=== PATIENT | male | born 1935 | race Caucasian/White ===

== ENCOUNTER 2018-10-03 12:53 | Inpatient (IN) | payer MEDICARE ==
[~2018-10-03] VITALS: Ht 172.7 cm; Wt 92.4 kg
--- NOTE | 2018-10-03 13:01 | NUR ---
LEVAQUIN INFUSING ON ARRIVAL FROM [facility] WITH DX SEPTIC GALLSTONE. ABD IS RIGID AND DISTENDED. SHALLOW RAPID RESPS R/T DISTENSION. PT IS REQUIRING SUPPLEMENTAL O2 TO MAINTAIN SPO2 >90%. SPEECH CLEAR AND APPROP. AOX4. FEVER 100.1
[2018-10-03] MEDS ORDERED: ACETAMINOPHEN 325 MG SUPP PR ONE (13:03)
[2018-10-03] MEDS ORDERED: ACETAMINOPHEN 650 MG SUPP ONE (13:06)
--- NOTE | 2018-10-03 13:09 | NUR ---
ARUN COMPLETED. RECTAL TYLENOL GIVEN PER VERBAL ORDER BY DR WELCH. DR LOCK TO BS
[2018-10-03] MEDS ORDERED: PHEN-418 PO (13:17)
[2018-10-03] MEDS ORDERED: HYDR25TA6 PO (13:17)
[2018-10-03] MEDS ORDERED: LEVO112T2 PO (13:17)
[2018-10-03] MEDS ORDERED: LEVETIRACETAM PO (13:17)
[2018-10-03] MEDS ORDERED: LOSA100T7 PO (13:17)
[2018-10-03] MEDS ORDERED: OXYcodone IR 5MG TABLET PO PRN (13:30)
[2018-10-03] MEDS ORDERED: ONDANSETRON 2MG/ML, 2ML IVPush PRN (13:30)
[2018-10-03] MEDS ORDERED: ONDANSETRON ODT 4 MG PO PRN (13:30)
[2018-10-03] MEDS ORDERED: hydrALAzine 20 MG/ML, 1ML IVPush PRN (13:30)
[2018-10-03] MEDS ORDERED: morphine SULFATE 10 MG/ML, 1ML IVPush PRN (13:30)
--- NOTE | 2018-10-03 13:30 | NUR ---
ADMISSION ORDERS REVIEWED
[2018-10-03 13:53] LABS: MEAN CORPUSCULAR HEMOGLOBIN 30.6 pg (27.5-34.5); MEAN CORPUSCULAR HGB CONC 34.1 g/dL (33.2-36.2); MEAN CORPUSCULAR VOLUME 89.8 fL (81-97); MEAN PLATELET VOLUME 7.5 fL (7.4-10.4); PLATELET COUNT 178 x10^3/uL (130-400); RED BLOOD COUNT 5.05 x10^6/uL (4.38-5.82); RED CELL DISTRIBUTION WIDTH 14.9 % (9.4-14.8)
[2018-10-03 13:59] LABS: ALANINE AMINOTRANSFERASE 32 U/L (12-78); ALBUMIN 3.3 g/dL (3.4-5.0); ANION GAP 9 mmol/L (5-15); CALCIUM 8.2 mg/dL (8.5-10.1); CHLORIDE 106 mmol/L (98-107)
[2018-10-03 14:01] LABS: ALKALINE PHOSPHATASE 69 U/L (45-117); BILIRUBIN,TOTAL 1.4 mg/dL (0.2-1.0); TOTAL PROTEIN 7.4 g/dL (6.4-8.2)
[2018-10-03 14:18] LABS: MD YES
[2018-10-03 14:23] LABS: BAND#(MANUAL) 2.49 x10^3/uL; BANDS%(MANUAL) 14 % (0-7); LYMPH#(MANUAL) 0.36 x10^3/uL (1-3.4); LYMPHS% (MANUAL) 2 % (22-44); MONOS#(MANUAL) 0.53 x10^3/uL (0.3-2.7); MONOS% (MANUAL) 3 % (2-9); SEG#(MANUAL) 14.42 x10^3/uL (1.8-6.8); SEGS% (MANUAL) 81 % (42-75)
[2018-10-03 14:25] LABS: <PLATELET ESTIMATE> ADEQUATE; <PLT MORPHOLOGY> NORMAL PLT MORPH; ANISOCYTOSIS 1+
[2018-10-03] MEDS: D5%-0.45NACL+KCL 20MEQ 1,000 ML IV SCH (14:29)
--- NOTE | 2018-10-03 14:34 | NUR ---
REPORT CALLED TO SIMONE LEWIS
[2018-10-03 15:11] VITALS: BP 105/51
[2018-10-03] MEDS ORDERED: LEVOFLOXACIN/PMX 750MG/150ML 150 ML IV SCH (16:00)
[2018-10-03] MEDS: METRONIDAZOLE PMX 500MG/100ML 100 ML IV SCH ×2 (16:02→23:05)
[2018-10-03] MEDS: PANTOPRAZOLE 40 MG IV IVPush SCH ×2 (16:02→23:05)
[2018-10-03 20:45] VITALS: BP 127/70
[2018-10-04 03:00] VITALS: BP 132/80
[2018-10-04] MEDS ORDERED: ALBUTEROL SULFATE 2.5 MG/3 ML ONE ×2 (03:41→16:52)
[2018-10-04] MEDS: METRONIDAZOLE PMX 500MG/100ML 100 ML IV SCH (04:00)
[2018-10-04] MEDS ORDERED: AMPICILLIN/SULBACTAM 3 GM in SODIUM CHLORIDE 0.9% 100 ML IV SCH (04:00)
[2018-10-04 05:01] LABS: MEAN CORPUSCULAR HEMOGLOBIN 30.7 pg (27.5-34.5); MEAN CORPUSCULAR HGB CONC 33.7 g/dL (33.2-36.2); MEAN CORPUSCULAR VOLUME 91.1 fL (81-97); MEAN PLATELET VOLUME 7.6 fL (7.4-10.4); PLATELET COUNT 147 x10^3/uL (130-400); RED BLOOD COUNT 5.01 x10^6/uL (4.38-5.82); RED CELL DISTRIBUTION WIDTH 15.4 % (9.4-14.8)
[2018-10-04 05:12] LABS: CHLORIDE 109 mmol/L (98-107)
[2018-10-04 05:18] LABS: MD YES
[2018-10-04 05:19] LABS: ALANINE AMINOTRANSFERASE 38 U/L (12-78); ALBUMIN 3.1 g/dL (3.4-5.0); ALKALINE PHOSPHATASE 56 U/L (45-117); ANION GAP 9 mmol/L (5-15); BILIRUBIN,TOTAL 1.5 mg/dL (0.2-1.0); CALCIUM 7.8 mg/dL (8.5-10.1); CREATININE 1.13 mg/dL (0.7-1.3)
[2018-10-04 05:20] LABS: <PLATELET ESTIMATE> ADEQUATE; <PLT MORPHOLOGY> NORMAL PLT MORPH; ANISOCYTOSIS 1+; BAND#(MANUAL) 1.59 x10^3/uL; BANDS%(MANUAL) 10 % (0-7); LYMPH#(MANUAL) 1.11 x10^3/uL (1-3.4); LYMPHS% (MANUAL) 7 % (22-44); MONOS#(MANUAL) 0.32 x10^3/uL (0.3-2.7); MONOS% (MANUAL) 2 % (2-9); PMNS WITH VACUOLES 1+; SEG#(MANUAL) 12.88 x10^3/uL (1.8-6.8); SEGS% (MANUAL) 81 % (42-75)
[2018-10-04] MEDS: ALBUTEROL SULFATE 2.5 MG/3 ML NPPB SCH ×3 (07:00→15:00)
[2018-10-04 08:17] VITALS: BP 127/83
[2018-10-04] MEDS ORDERED: GLYCERIN ADULT SUPP PR ONE (09:00)
[2018-10-04] MEDS ORDERED: SODIUM CHLORIDE 0.9%, 500ML IVBOLUS ONE (09:00)
[2018-10-04] MEDS: PANTOPRAZOLE 40 MG IV IVPush SCH ×2 (09:12→21:00)
[2018-10-04] MEDS: D5%-0.45NACL+KCL 20MEQ 1,000 ML IV SCH ×2 (09:17→22:20)
[2018-10-04] MEDS: PIPERACILLIN/TAZO/PMX 4.5GM 100 ML IV SCH ×2 (11:10→19:00)
[2018-10-04 12:37] VITALS: BP 112/71
[2018-10-04] MEDS ORDERED: FENTANYL PF 250 MCG/5ML ONE (14:41)
[2018-10-04] MEDS ORDERED: PHENYLEPHRINE 10 MG/ML ONE (14:58)
[2018-10-04] MEDS ORDERED: BUPIVACAINE/PF-EPI 0.5% 1:200K ONE (15:09)
[2018-10-04] MEDS ORDERED: OMNIPAQUE 350 MG/ML, 50 ML BOTTLE ONE (16:02)
[2018-10-04] MEDS ORDERED: SUCCINYLCHOLINE 20 MG/ML, 10ML ONE (16:14)
[2018-10-04] MEDS ORDERED: METOCLOPRAMIDE 5 MG/ML, 2ML ONE (16:14)
[2018-10-04] MEDS ORDERED: ONDANSETRON 2MG/ML, 2ML ONE (16:14)
[2018-10-04] MEDS ORDERED: PROPOFOL 10 MG/ML, 20ML ONE (16:14)
[2018-10-04] MEDS ORDERED: ROCURONIUM 10MG/ML,5ML ONE (16:14)
[2018-10-04] MEDS ORDERED: OMNIPAQUE 350 MG/ML, 50 ML BOTTLE IV ONE (16:22)
[2018-10-04] MEDS ORDERED: PROMETHAZINE 25 MG/ML, 1ML IV PRN (17:00)
[2018-10-04] MEDS: FENTANYL PF 100 MCG/2ML IV PRN ×4 (17:00→17:55)
[2018-10-04] MEDS ORDERED: ALBUTEROL SULFATE 2.5 MG/3 ML NPPB PRN ×2 (17:00→17:30)
[2018-10-04] MEDS ORDERED: OXYcodone 5 MG/5 ML ORAL.SOL UDC ONE (17:00)
[2018-10-04] MEDS ORDERED: hydrALAzine 20 MG/ML, 1ML IV PRN (17:00)
[2018-10-04] MEDS ORDERED: ONDANSETRON 2MG/ML, 2ML IV PRN ×2 (17:00→20:30)
[2018-10-04] MEDS ORDERED: LABETALOL 5MG/ML, 20ML IV PRN (17:00)
[2018-10-04] MEDS ORDERED: OXYcodone 5 MG/5 ML ORAL.SOL UDC PO PRN (17:00)
[2018-10-04] MEDS ORDERED: FENTANYL PF 100 MCG/2ML ONE (17:00)
[2018-10-04] MEDS ORDERED: ALBUTEROL/IPRATROPIUM 2.5MG/0.5MG, 3 ML NPPB PRN (17:00)
[2018-10-04] MEDS ORDERED: MORPHINE SULFATE 4 MG/ML, 1ML IVPush PRN (17:00)
[2018-10-04] MEDS ORDERED: HYDROmorphone 2 MG/ML, 1ML ONE (17:20)
[2018-10-04] MEDS: HYDROmorphone 2 MG/ML, 1ML IVPush PRN ×2 (17:20→17:30)
[2018-10-04 18:41] VITALS: BP 120/72
[2018-10-04] MEDS ORDERED: ACETAMINOPHEN 650 MG SUPP PR PRN (20:30)
[2018-10-04] MEDS: D5%-LACTATED RINGERS 1,000 ML IV SCH (20:30)
[2018-10-04] MEDS ORDERED: morphine SULFATE 10 MG/ML, 1ML IV PRN (20:30)
[2018-10-04] MEDS ORDERED: ACETAMINOPHEN 325 MG TABLET PO PRN (20:30)
[2018-10-04] MEDS ORDERED: DIPHENHYDRAMINE 50 MG/ML, 1ML IV PRN (20:30)
[2018-10-04] MEDS ORDERED: LACTATED RINGERS 500 ML IV PRN (20:30)
[2018-10-05 01:11] VITALS: BP 139/68
[2018-10-05] MEDS: D5%-LACTATED RINGERS 1,000 ML IV SCH ×3 (01:13→21:00)
[2018-10-05] MEDS: HEPARIN 5,000 UNITS/ML, 1ML SQ SCH ×3 (02:24→22:36)
[2018-10-05] MEDS: PIPERACILLIN/TAZO/PMX 4.5GM 100 ML IV SCH ×3 (02:24→21:08)
[2018-10-05 05:38] LABS: MEAN CORPUSCULAR HEMOGLOBIN 31.2 pg (27.5-34.5); MEAN CORPUSCULAR HGB CONC 33.7 g/dL (33.2-36.2); MEAN CORPUSCULAR VOLUME 92.6 fL (81-97); PLATELET COUNT 115 x10^3/uL (130-400); RED BLOOD COUNT 4.66 x10^6/uL (4.38-5.82); RED CELL DISTRIBUTION WIDTH 15.1 % (9.4-14.8)
[2018-10-05 05:43] LABS: ALBUMIN 2.2 g/dL (3.4-5.0); ANION GAP 5 mmol/L (5-15); BILIRUBIN, DIRECT 0.4 mg/dL (0.1-0.2); CALCIUM 7.7 mg/dL (8.5-10.1); CHLORIDE 110 mmol/L (98-107)
[2018-10-05 05:46] LABS: ALANINE AMINOTRANSFERASE 93 U/L (12-78); ALKALINE PHOSPHATASE 45 U/L (45-117); BILIRUBIN,TOTAL 1.1 mg/dL (0.2-1.0); CREATININE 1.02 mg/dL (0.7-1.3); TOTAL PROTEIN 5.8 g/dL (6.4-8.2)
[2018-10-05 05:53] LABS: MD YES
[2018-10-05 05:57] LABS: BAND#(MANUAL) 0.32 x10^3/uL; BANDS%(MANUAL) 3 % (0-7); LYMPH#(MANUAL) 0.32 x10^3/uL (1-3.4); LYMPHS% (MANUAL) 3 % (22-44); MONOS#(MANUAL) 0.43 x10^3/uL (0.3-2.7); MONOS% (MANUAL) 4 % (2-9); SEG#(MANUAL) 9.72 x10^3/uL (1.8-6.8); SEGS% (MANUAL) 90 % (42-75)
[2018-10-05 05:58] LABS: <PLATELET ESTIMATE> ADEQUATE; <PLT MORPHOLOGY> NORMAL PLT MORPH; ANISOCYTOSIS 1+; PMNS WITH VACUOLES 1+
[2018-10-05 06:39] VITALS: BP 121/73
[2018-10-05] MEDS: PANTOPRAZOLE 40 MG IV IVPush SCH ×2 (09:55→21:08)
[2018-10-05] MEDS: D5%-0.45NACL+KCL 20MEQ 1,000 ML IV SCH (11:40)
[2018-10-05 13:42] VITALS: BP 125/70
[2018-10-05] MEDS ORDERED: POTASSIUM PHOSPHATE 22 MEQ in SODIUM CHLORIDE 0.9% 500 ML IV ONE (16:30)
[2018-10-05] MEDS ORDERED: MAGNESIUM SULFATE PMX 2GM/50ML 50 ML IV ONE (17:00)
[2018-10-05 19:50] VITALS: BP 121/66
[2018-10-05] MEDS: ACETAMINOPHEN 325 MG TABLET PO PRN (21:09)
[2018-10-05] MEDS: DIPHENHYDRAMINE 25 MG CAPSULE PO PRN (21:09)
[2018-10-06 01:28] VITALS: BP 116/71
[2018-10-06] MEDS: D5%-0.45NACL+KCL 20MEQ 1,000 ML IV SCH (04:35)
[2018-10-06] MEDS: PIPERACILLIN/TAZO/PMX 4.5GM 100 ML IV SCH ×3 (04:59→22:49)
[2018-10-06] MEDS: D5%-LACTATED RINGERS 1,000 ML IV SCH (05:00)
[2018-10-06] MEDS: HEPARIN 5,000 UNITS/ML, 1ML SQ SCH ×3 (05:55→22:49)
[2018-10-06 07:46] VITALS: BP 120/77
[2018-10-06] MEDS: PANTOPRAZOLE 40 MG IV IVPush SCH (08:58)
[2018-10-06] MEDS ORDERED: POTASSIUM PHOSPHATE 22 MEQ in SODIUM CHLORIDE 0.9% 500 ML IV ONE (09:00)
[2018-10-06 09:29] LABS: MEAN CORPUSCULAR HEMOGLOBIN 29.9 pg (27.5-34.5); MEAN CORPUSCULAR HGB CONC 32.4 g/dL (33.2-36.2); MEAN CORPUSCULAR VOLUME 92.3 fL (81-97); MEAN PLATELET VOLUME 9.6 fL (7.4-10.4); PLATELET COUNT 106 x10^3/uL (130-400); RED BLOOD COUNT 4.16 x10^6/uL (4.38-5.82); RED CELL DISTRIBUTION WIDTH 15.7 % (9.4-14.8)
[2018-10-06 09:35] LABS: ALANINE AMINOTRANSFERASE 79 U/L (12-78); ANION GAP 4 mmol/L (5-15); CALCIUM 7.3 mg/dL (8.5-10.1); CHLORIDE 110 mmol/L (98-107)
[2018-10-06 09:37] LABS: ALKALINE PHOSPHATASE 45 U/L (45-117); BILIRUBIN,TOTAL 0.7 mg/dL (0.2-1.0); TOTAL PROTEIN 5.6 g/dL (6.4-8.2)
[2018-10-06 09:50] LABS: BASOPHILS # (AUTO) 0.01 x10^3/uL (0-0.1); BASOPHILS % (AUTO) 0 % (0-1); EOSINOPHILS # (AUTO) 0.09 x10^3/uL (0-0.4); EOSINOPHILS % (AUTO) 1 % (1-7); LYMPHOCYTES # (AUTO) 0.82 x10^3/uL (1-3.4); LYMPHOCYTES % (AUTO) 9 % (22-44); MD SCAN; MONOCYTES # (AUTO) 0.44 x10^3/uL (0.2-0.8); MONOCYTES % (AUTO) 5 % (2-9); NEUTROPHILS # (AUTO) 8.08 x10^3/uL (1.8-6.8); NEUTROPHILS % (AUTO) 86 % (42-75)
[2018-10-06 13:20] VITALS: BP 116/57
[2018-10-06] MEDS: HYDROcodone/APAP 5/325 TABLET PO PRN (16:44)
[2018-10-06 19:47] VITALS: BP 108/64
[2018-10-06] MEDS ORDERED: D5%-LACTATED RINGERS 1,000 ML IV SCH (20:30)
[2018-10-06] MEDS: ACETAMINOPHEN 325 MG TABLET PO PRN (20:49)
[2018-10-06] MEDS: DIPHENHYDRAMINE 25 MG CAPSULE PO PRN (20:49)
[2018-10-06] MEDS: PANTOPROZOLE 40MG TABLET PO SCH (20:49)
[2018-10-07 02:00] VITALS: BP 109/69
[2018-10-07 05:37] LABS: MEAN CORPUSCULAR HEMOGLOBIN 30.4 pg (27.5-34.5); MEAN CORPUSCULAR HGB CONC 33.1 g/dL (33.2-36.2); MEAN CORPUSCULAR VOLUME 91.6 fL (81-97); MEAN PLATELET VOLUME 7.7 fL (7.4-10.4); PLATELET COUNT 127 x10^3/uL (130-400); RED BLOOD COUNT 4.19 x10^6/uL (4.38-5.82); RED CELL DISTRIBUTION WIDTH 15.1 % (9.4-14.8)
[2018-10-07 06:05] LABS: BASOPHILS # (AUTO) 0.02 x10^3/uL (0-0.1); BASOPHILS % (AUTO) 0 % (0-1); EOSINOPHILS # (AUTO) 0.19 x10^3/uL (0-0.4); EOSINOPHILS % (AUTO) 3 % (1-7); LYMPHOCYTES # (AUTO) 0.96 x10^3/uL (1-3.4); LYMPHOCYTES % (AUTO) 13 % (22-44); MD SCAN; MONOCYTES # (AUTO) 0.62 x10^3/uL (0.2-0.8); MONOCYTES % (AUTO) 8 % (2-9); NEUTROPHILS % (AUTO) 77 % (42-75)
[2018-10-07] MEDS: HEPARIN 5,000 UNITS/ML, 1ML SQ SCH ×3 (06:20→23:06)
[2018-10-07] MEDS: PIPERACILLIN/TAZO/PMX 4.5GM 100 ML IV SCH (06:20)
[2018-10-07 06:38] LABS: ALANINE AMINOTRANSFERASE 59 U/L (12-78); ALBUMIN 1.9 g/dL (3.4-5.0); ANION GAP 5 mmol/L (5-15); CALCIUM 7.6 mg/dL (8.5-10.1); CHLORIDE 109 mmol/L (98-107); CREATININE 0.74 mg/dL (0.7-1.3)
[2018-10-07 06:40] LABS: ALKALINE PHOSPHATASE 43 U/L (45-117); BILIRUBIN,TOTAL 0.5 mg/dL (0.2-1.0); TOTAL PROTEIN 5.4 g/dL (6.4-8.2)
[2018-10-07 07:54] VITALS: BP 139/74
[2018-10-07] MEDS: PANTOPROZOLE 40MG TABLET PO SCH ×2 (08:11→21:46)
[2018-10-07] MEDS: HYDROcodone/APAP 5/325 TABLET PO PRN ×2 (10:31→14:13)
[2018-10-07] MEDS: metroNIDAZOLE 500 MG TABLET PO SCH ×2 (12:03→21:46)
[2018-10-07] MEDS: CIPROFLOXACIN 500 MG TABLET PO SCH ×2 (12:03→23:06)
[2018-10-07 12:55] VITALS: BP 129/75
[2018-10-07 19:06] VITALS: BP 145/61
[2018-10-08 01:51] VITALS: BP 122/65
[2018-10-08] MEDS: metroNIDAZOLE 500 MG TABLET PO SCH ×2 (03:05→11:30)
[2018-10-08] MEDS: HYDROcodone/APAP 5/325 TABLET PO PRN ×2 (03:05→11:33)
[2018-10-08 05:44] LABS: BASOPHILS # (AUTO) 0.01 x10^3/uL (0-0.1); BASOPHILS % (AUTO) 0 % (0-1); EOSINOPHILS # (AUTO) 0.17 x10^3/uL (0-0.4); EOSINOPHILS % (AUTO) 3 % (1-7); LYMPHOCYTES # (AUTO) 0.95 x10^3/uL (1-3.4); LYMPHOCYTES % (AUTO) 14 % (22-44); MD NO; MEAN CORPUSCULAR HEMOGLOBIN 30.3 pg (27.5-34.5); MEAN CORPUSCULAR HGB CONC 33.4 g/dL (33.2-36.2); MEAN CORPUSCULAR VOLUME 90.8 fL (81-97); MEAN PLATELET VOLUME 7.9 fL (7.4-10.4); MONOCYTES # (AUTO) 0.87 x10^3/uL (0.2-0.8); MONOCYTES % (AUTO) 13 % (2-9); NEUTROPHILS % (AUTO) 70 % (42-75); PLATELET COUNT 139 x10^3/uL (130-400); RED BLOOD COUNT 4.16 x10^6/uL (4.38-5.82)
[2018-10-08 05:59] LABS: HEMOGLOBIN A1C 6.1 % (4.2-6.3)
[2018-10-08 06:00] LABS: CHLORIDE 110 mmol/L (98-107)
[2018-10-08 06:53] LABS: ALANINE AMINOTRANSFERASE 52 U/L (12-78); ALKALINE PHOSPHATASE 48 U/L (45-117); ANION GAP 5 mmol/L (5-15); BILIRUBIN,TOTAL 0.5 mg/dL (0.2-1.0); CALCIUM 7.4 mg/dL (8.5-10.1); CREATININE 0.71 mg/dL (0.7-1.3); TOTAL PROTEIN 5.4 g/dL (6.4-8.2)
[2018-10-08 06:58] VITALS: BP 146/70
[2018-10-08] MEDS: PANTOPROZOLE 40MG TABLET PO SCH (08:44)
[2018-10-08] MEDS: HEPARIN 5,000 UNITS/ML, 1ML SQ SCH (08:44)
[2018-10-08] MEDS: CIPROFLOXACIN 500 MG TABLET PO SCH (11:30)
[2018-10-08] MEDS ORDERED: DOCU-131 PO (11:35)
[2018-10-08] MEDS ORDERED: ONDA4TAB7 PO (11:37)
[2018-10-08] MEDS ORDERED: HYDR-3240 PO (11:37)
[2018-10-08] MEDS ORDERED: METR500T PO (11:38)
[2018-10-08] MEDS ORDERED: CIPR500T3 PO (11:39)
== END 2018-10-08 12:41 | disposition home or self-care (01) | DRG 853 ==
LOC: ED 13:27 → EDIP 13:28 → 4NOR 15:00
PROVIDERS: ADMIT Internal Medicine; ATTEND Internal Medicine
PROC: BF131ZZ Fluoroscopy of Gallbladder and Bile Ducts using Low Osmolar Contrast (ICD-10-PCS; 2018-10-04)
PROC: 0FT44ZZ Resection of Gallbladder, Percutaneous Endoscopic Approach (ICD-10-PCS; principal; 2018-10-04 18:00)
DX: A41.9 Sepsis, unspecified organism (principal); K65.9 Peritonitis, unspecified; J96.01 Acute respiratory failure with hypoxia; K29.71 Gastritis, unspecified, with bleeding; J98.11 Atelectasis; K80.43 Calculus of bile duct with acute cholecystitis with obstruction; E78.5 Hyperlipidemia, unspecified; R74.0 Nonspecific elevation of levels of transaminase and lactic acid dehydrogenase [LDH]; K59.00 Constipation, unspecified; E80.6 Other disorders of bilirubin metabolism; E83.39 Other disorders of phosphorus metabolism; E83.42 Hypomagnesemia; J44.9 Chronic obstructive pulmonary disease, unspecified; Z85.46 Personal history of malignant neoplasm of prostate; Z87.891 Personal history of nicotine dependence
CPT/HCPCS: 36415; 36600; 71045; 74021; 74181; 74300; 76700; 80053; 82248; 82803; 83036; 83605; 83690; 83735; 84100; 85025; 87040; 88304; 93005; 96374; 99285; G0378; J0295; J1170; J1644; J2405; J2543; J2704; J3010; J7613; Q9967; C9113; J0330; J2370; J2765; J3475; J3480; J7040; J7121; Q0163